=== PATIENT | female | born 2000 | race Two or more races ===

== ENCOUNTER 2018-03-12 01:04 | Inpatient (IN) | payer MEDICAID ==
[~2018-03-12] VITALS: Ht 162.6 cm; Wt 71.0 kg
[2018-03-12] MEDS ORDERED: OXYTOCIN 30U/ 0.9% NaCL 500ML 500 ML IV ONE (01:59)
[2018-03-12] MEDS ORDERED: ONDANSETRON 2MG/ML, 2ML IVPush PRN ×2 (02:00→10:00)
[2018-03-12] MEDS ORDERED: FENTANYL PF 100 MCG/2ML IV PRN (02:00)
[2018-03-12] MEDS ORDERED: TERBUTALINE 1 MG/ML, 1ML IVPush PRN (02:00)
[2018-03-12] MEDS ORDERED: PENICILLIN GK 5,000,000 UNITS in DEXTROSE 5% 100 ML IVPB ONE (02:00)
[2018-03-12] MEDS ORDERED: CALCIUM CARBONATE 500 MG TAB.CHEW PO PRN (02:00)
[2018-03-12] MEDS ORDERED: MISOPROSTOL 200 MCG TABLET ONE (02:02)
[2018-03-12] MEDS ORDERED: NEWBORN KIT ONE (02:02)
[2018-03-12] MEDS ORDERED: OXYTOCIN 30U/ 0.9% NaCL 500ML 500 ML ONE (02:02)
[2018-03-12] MEDS ORDERED: LIDOCAINE 1%, 20ML ONE (02:02)
[2018-03-12] MEDS: LACTATED RINGERS 1,000 ML IV SCH ×2 (02:11→07:06)
[2018-03-12 02:26] LABS: BASOPHILS # (AUTO) 0.03 x10^3/uL (0-0.3); BASOPHILS % (AUTO) 0 % (0-1); EOSINOPHILS # (AUTO) 0.05 x10^3/uL (0-0.8); EOSINOPHILS % (AUTO) 1 % (1-7); LYMPHOCYTES % (AUTO) 17 % (22-44); MD NO; MEAN CORPUSCULAR HEMOGLOBIN 27.9 pg (27.0-34.8); MEAN CORPUSCULAR HGB CONC 32.9 g/dL (32.4-35.8); MEAN PLATELET VOLUME 7.7 fL (7.4-10.4); MONOCYTES % (AUTO) 9 % (2-9); NEUTROPHILS # (AUTO) 7.18 x10^3/uL (1.8-8.0); NEUTROPHILS % (AUTO) 73 % (42-75); PLATELET COUNT 306 x10^3/uL (130-400); RED BLOOD COUNT 3.94 x10^6/uL (3.82-5.3); RED CELL DISTRIBUTION WIDTH 15.1 % (9.6-15.2)
[2018-03-12] MEDS ORDERED: FENTANYL PF 100 MCG/2ML ONE ×3 (02:41→07:07)
[2018-03-12] MEDS: FENTANYL PF 100 MCG/2ML IVPush PRN ×5 (02:42→16:29)
[2018-03-12] MEDS: PENICILLIN GK 2,500,000 UNITS in DEXTROSE 5% 100 ML IVPB SCH ×3 (05:27→14:00)
[2018-03-12] MEDS ORDERED: FENTANYL/BUPIV./NS/PF 250 ML EPIDCONT SCH ×2 (06:04→09:41)
[2018-03-12] MEDS ORDERED: LIDOCAINE/PF 1.5%-EPI 1:200K, 30ML ONE (07:04)
[2018-03-12] MEDS ORDERED: BUPIVACAINE 0.25% ONE (07:07)
[2018-03-12] MEDS: D5%-LACTATED RINGERS 1,000 ML IV SCH ×2 (08:22→09:59)
[2018-03-12] MEDS ORDERED: LACTATED RINGERS 1,000 ML IV SCH (09:41)
[2018-03-12] MEDS ORDERED: LACTATED RINGERS 1,000 ML IVBOLUS PRN (10:00)
[2018-03-12] MEDS ORDERED: EPHEDRINE 50 MG/ML, 1ML IVPush PRN (10:00)
[2018-03-12] MEDS: OXYTOCIN 30U/ 0.9% NaCL 500ML 500 ML IV SCH ×2 (10:21→20:21)
[2018-03-12] MEDS ORDERED: ACETAMINOPHEN 325 MG TABLET PO PRN (10:30)
[2018-03-12] MEDS ORDERED: CARBOPROST TROMETHAMINE 250 MCG/ML, 1ML IM PRN (10:30)
[2018-03-12] MEDS ORDERED: MISOPROSTOL 200 MCG TABLET PR PRN (10:30)
[2018-03-12] MEDS ORDERED: OXYcodone/APAP 5/325MG TABLET PO PRN (10:30)
[2018-03-12] MEDS ORDERED: METHYLERGONOVINE 0.2 MG/ML IM PRN (10:30)
[2018-03-12] MEDS ORDERED: ONDANSETRON 2MG/ML, 2ML IV PRN (10:30)
[2018-03-12 12:15] VITALS: BP 113/69
[2018-03-12] MEDS: IBUPROFEN 600 MG TABLET PO PRN (16:36)
[2018-03-12 16:40] VITALS: BP 109/77
[2018-03-12 18:18] LABS: BASOPHILS # (AUTO) 0.03 x10^3/uL (0-0.3); BASOPHILS % (AUTO) 0 % (0-1); EOSINOPHILS # (AUTO) 0.05 x10^3/uL (0-0.8); EOSINOPHILS % (AUTO) 1 % (1-7); LYMPHOCYTES # (AUTO) 2.03 x10^3/uL (1-6.1); LYMPHOCYTES % (AUTO) 18 % (22-44); MD NO; MEAN CORPUSCULAR HEMOGLOBIN 27.9 pg (27.0-34.8); MEAN CORPUSCULAR VOLUME 84.5 fL (80-100); MEAN PLATELET VOLUME 7.4 fL (7.4-10.4); MONOCYTES % (AUTO) 11 % (2-9); NEUTROPHILS % (AUTO) 70 % (42-75); PLATELET COUNT 282 x10^3/uL (130-400); RED BLOOD COUNT 3.88 x10^6/uL (3.82-5.3); RED CELL DISTRIBUTION WIDTH 14.7 % (9.6-15.2)
[2018-03-12 20:07] VITALS: BP 119/79
[2018-03-13] VITALS: BP 114/70
[2018-03-13] MEDS: IBUPROFEN 600 MG TABLET PO PRN ×2 (00:07→13:43)
[2018-03-13] MEDS: DOCUSATE 100 MG CAPSULE PO PRN (00:07)
[2018-03-13 04:00] VITALS: BP 114/70
[2018-03-13] MEDS: OXYTOCIN 30U/ 0.9% NaCL 500ML 500 ML IV SCH ×2 (06:21→16:21)
[2018-03-13 08:00] VITALS: BP 116/77
[2018-03-13] MEDS: PRENATAL VIT/IRON/FA 1 EACH TABLET PO SCH (09:08)
[2018-03-13 20:00] VITALS: BP 115/68
[2018-03-14] MEDS: OXYTOCIN 30U/ 0.9% NaCL 500ML 500 ML IV SCH (02:21)
[2018-03-14] MEDS: PRENATAL VIT/IRON/FA 1 EACH TABLET PO SCH (07:19)
[2018-03-14] MEDS: DOCUSATE 100 MG CAPSULE PO PRN (07:19)
[2018-03-14] MEDS: IBUPROFEN 600 MG TABLET PO PRN (07:21)
[2018-03-14 07:40] VITALS: BP 118/82
[2018-03-14] MEDS ORDERED: IBUP-1222 PO (09:44)
== END 2018-03-14 13:01 | disposition home or self-care (01) | DRG 807 ==
LOC: LDOP 01:04 → LDIP 02:08 → 2NW 12:14
PROVIDERS: ADMIT Obstetrics & Gynecology; ATTEND Obstetrics & Gynecology
PROC: 10E0XZZ Delivery of Products of Conception, External Approach (ICD-10-PCS; principal; 2018-03-12)
PROC: 3E0R3BZ Introduction of Anesthetic Agent into Spinal Canal, Percutaneous Approach (ICD-10-PCS; 2018-03-12)
PROC: 00HU33Z Insertion of Infusion Device into Spinal Canal, Percutaneous Approach (ICD-10-PCS; 2018-03-12)
DX: O42.913 Preterm premature rupture of membranes, unspecified as to length of time between rupture and onset of labor, third trimester (principal); Z37.0 Single live birth; Z3A.36 36 weeks gestation of pregnancy
CPT/HCPCS: 36415; 99285; J7121; 85025; 86850; 86900; 89060; G0378; J2540; J3010; J3490; J7120; Q0114